=== PATIENT | female | born 1935 | race Caucasian/White ===

== ENCOUNTER 2019-04-26 09:34 | Inpatient (IN) | payer MEDICARE, BC ==
[2019-04-26] MEDS ORDERED: ONDANSETRON HCL INJ/PF 4 MG/2 ML SDV IV ONE (10:27)
[2019-04-26] MEDS ORDERED: NORMAL SALINE 1000 ML 1,000 ML IV ONE (10:27)
--- NOTE | 2019-04-26 10:28 | ER Document Report ---
ED Medical Screen (RME) - General Chief Complaint: Nausea/Vomiting/Diarrhea Stated Complaint: ABDOMINAL PAIN/VOMITING Time Seen by Provider: 04/26/19 10:25 Mode of Arrival: Wheelchair Information source: Patient Notes: 84-year-old female patient presents emergency department with nausea and vomiting. Patient reports multiple episodes of this in the past. States she has been seen by GI and has been seen at other hospitals. She states that they have worked her up multiple times cannot find a reason for the vomiting. She states that occasionally she ends up in the ER requesting IV fluids and IV Zofran which resolves her symptoms. Denies fevers or diarrhea. Denies any abdominal pain. Exam: Patient dry heaving in triage. I have greeted and performed a rapid initial assessment of this patient. A comprehensive ED assessment and evaluation of the patient, analysis of test results and completion of the medical decision making process will be conducted by additional ED providers. I have specifically instructed the patient or family members with the patient to immediately return to any nursing staff should anything change in the patient's condition or with their chief complaint. TRAVEL OUTSIDE OF THE [place] IN LAST 30 DAYS: No - Related Data Allergies/Adverse Reactions: Ativan Allergy (Uncoded 04/26/19 10:13) Past Medical History - Social History Chew tobacco use (# tins/day): No Frequency of alcohol use: Rare Drug Abuse: None Physical Exam - Vital signs Vitals: Temp Pulse Resp BP Pulse Ox 97.6 F 89 16 188/78 H 100 04/26/19 10:00 04/26/19 10:00 04/26/19 10:00 04/26/19 10:00 04/26/19 10:00 Course - Vital Signs Vital signs: Temp Pulse Resp BP Pulse Ox 97.6 F 89 16 188/78 H 100 04/26/19 10:00 04/26/19 10:00 04/26/19 10:00 04/26/19 10:00 04/26/19 10:00
[2019-04-26 11:09] LABS: ABSOLUTE LYMPHOCYTES (AUTO) 0.6 10^3/uL (0.5-4.7); ABSOLUTE MONOCYTES (AUTO) 0.3 10^3/uL (0.1-1.4); ABSOLUTE NEUT (AUTO) 7.8 10^3/uL (1.7-8.2); BASOPHILS % (AUTO) 0.4 % (0-2); EOSINOPHILS % (AUTO) 0.2 % (0-6); HEMATOCRIT 41.8 % (36.0-47.0); HEMOGLOBIN 14.2 g/dL (12.0-15.5); LYMPHOCYTES % (AUTO) 7.2 % (13-45); MEAN CORPUSCULAR HEMOGLOBIN 29.3 pg (27.0-33.4); MEAN CORPUSCULAR HGB CONC 34.1 g/dL (32.0-36.0); MEAN CORPUSCULAR VOLUME 86 fl (80-97); MONOCYTES % (AUTO) 3.5 % (3-13); PLATELET COUNT 247 10^3/uL (150-450); RED BLOOD COUNT 4.87 10^6/uL (3.72-5.28); RED CELL DISTRIBUTION WIDTH 13.9 % (11.5-14.0); SEGMENTED NEUTROPHILS % (AUTO) 88.7 % (42-78); TOTAL CELLS COUNTED % (AUTO) 100 %; WHITE BLOOD COUNT 8.8 10^3/uL (4.0-10.5)
[2019-04-26 11:32] LABS: ALBUMIN 4.5 g/dL (3.5-5.0); ALKALINE PHOSPHATASE 98 U/L (38-126); ANION GAP 14 (5-19); ASPARTATE AMINO TRANSFERASE 32 U/L (14-36); BILIRUBIN,DIRECT 0.1 mg/dL (0.0-0.4); BILIRUBIN,TOTAL 0.6 mg/dL (0.2-1.3); BLOOD UREA NITROGEN 14 mg/dL (7-20); CARBON DIOXIDE 25 mmol/L (22-30); CHLORIDE 100 mmol/L (98-107); GLUCOSE 162 mg/dL (75-110); TOTAL PROTEIN 7.6 g/dL (6.3-8.2)
[2019-04-26] MEDS ORDERED: HYDROMORPHONE HCL INJ/PF 2 MG/ML AMPULE IV PRN ×3 (12:45→15:54)
--- NOTE | 2019-04-26 12:58 | ER Document Report ---
ED GI/ - General Chief Complaint: Nausea/Vomiting/Diarrhea Stated Complaint: ABDOMINAL PAIN/VOMITING Time Seen by Provider: 04/26/19 10:25 Mode of Arrival: Wheelchair Information source: Patient Notes: Patient complains of nausea and vomiting. This has been chronic for at least the last 5 to 10 years after receiving radiation therapy in the treatment of cancer. No past surgical history abdominal. Patient denies any chest pain or shortness of breath. No rashes. No urinary complaints. According to patient and daughter who is at the bedside normally IV fluid and Zofran will help with the symptoms. Patient is cachectic because of this chronic issue. She states the only food that she can eat is baked chicken. No other complaints. The abdominal pain is worse on the left side and is sharp. TRAVEL OUTSIDE OF THE [place] IN LAST 30 DAYS: No - Related Data Allergies/Adverse Reactions: Ativan Allergy (Uncoded 04/26/19 10:13) Past Medical History - General Information source: Patient - Social History Smoking Status: Never Smoker Chew tobacco use (# tins/day): No Frequency of alcohol use: Rare Drug Abuse: None Family History: None Patient has suicidal ideation: No Patient has homicidal ideation: No Review of Systems - Review of Systems Constitutional: denies: Chills, Fever Gastrointestinal: Abdominal pain, Vomiting -: Yes All other systems reviewed and negative Physical Exam - Vital signs Vitals: Temp Pulse Resp BP Pulse Ox 97.6 F 89 16 188/78 H 100 04/26/19 10:00 04/26/19 10:00 04/26/19 10:00 04/26/19 10:00 04/26/19 10:00 Interpretation: Hypertensive - General General appearance: Alert, Other - UNCOMFORTABLE - HEENT Head: Normocephalic, Atraumatic Eyes: Normal Pupils: PERRL Mucous membranes: Dry - Respiratory Respiratory status: No respiratory distress Chest status: Nontender Breath sounds: Normal Chest palpation: Normal - Cardiovascular Rhythm: Regular Heart sounds: Normal auscultation Murmur: No - Abdominal Inspection: Normal Distension: No distension Bowel sounds: Normal Tenderness: Tender. No: Rebound Organomegaly: No organomegaly - Back Back: Normal, Nontender - Extremities General upper extremity: Normal inspection, Nontender, Normal color, Normal ROM, Normal temperature General lower extremity: Normal inspection, Nontender, Normal color, Normal ROM, Normal temperature, Normal weight bearing. No: Kishan's sign - Neurological Neuro grossly intact: Yes Cognition: Normal Orientation: AAOx4 Harriman Coma Scale Eye Opening: Spontaneous Sanjeev Coma Scale Verbal: Oriented Sanjeev Coma Scale Motor: Obeys Commands Harriman Coma Scale Total: 15 Speech: Normal Motor strength normal: LUE, RUE, LLE, RLE Sensory: Normal - Psychological Associated symptoms: Normal affect, Normal mood - Skin Skin Temperature: Warm Skin Moisture: Dry Skin Color: Normal Course - Re-evaluation Re-evalutation: 04/26/19 13:01 Labs reviewed. 04/26/19 13:51 CT abdomen pelvis per radiologist shows early partial SBO. Patient continues to have abdominal pain and nausea. Will admit. 04/26/19 14:00 04/26/19 14:06 Discussed case in detail with Dr. Forte, who agrees with admission. Patient is currently stable. - Vital Signs Vital signs: Temp Pulse Resp BP Pulse Ox 97.6 F 89 16 188/78 H 100 04/26/19 10:00 04/26/19 10:00 04/26/19 10:00 04/26/19 10:00 04/26/19 10:00 - Laboratory Result Diagrams: 04/26/19 10:50 04/26/19 10:50 Laboratory results interpreted by me: 04/26/19 04/26/19 04/26/19 10:50 10:50 12:50 Lymph % (Auto) 7.2 L Seg Neutrophils % 88.7 H Glucose 162 H Urine Glucose (UA) 50 H Urine Ketones 20 H Discharge - Discharge Clinical Impression: SBO (small bowel obstruction) Abdominal pain Qualifiers: Abdominal location: unspecified location Qualified Code(s): R10.9 - Unspecified abdominal pain Vomiting Qualifiers: Vomiting type: unspecified Vomiting Intractability: unspecified Nausea presence: with nausea Qualified Code(s): R11.2 - Nausea with vomiting, unspecified Condition: Stable Disposition: ADMITTED INPATIENT Admitting Provider: Soni (Hospitalist) Unit Admitted: Medical Floor
[2019-04-26 13:07] LABS: APPEARANCE,URINE CLEAR; BILIRUBIN,URINE NEGATIVE (NEGATIVE); COLOR,URINE STRAW; GLUCOSE, URINE 50 mg/dL (NEGATIVE); KETONES,URINE 20 mg/dL (NEGATIVE); LEUKOCYTE ESTERASE,URINE NEGATIVE (NEGATIVE); NITRITE,URINE NEGATIVE (NEGATIVE); PROTEIN,URINE NEGATIVE (NEGATIVE); URINE SPECIFIC GRAVITY 1.011; UROBILINOGEN,URINE NEGATIVE mg/dL (<2.0)
--- NOTE | 2019-04-26 13:28 | RADIOLOGY REPORT (SQ) ---
EXAM DESCRIPTION: CT ABD/PELVIS NO ORAL OR IV COMPLETED DATE/TIME: 04/26/2019 1:00 pm REASON FOR STUDY: ABD PAIN COMPARISON: None. TECHNIQUE: CT scan of the abdomen and pelvis performed without intravenous or oral contrast. Images reviewed with lung, soft tissue, and bone windows. Reconstructed coronal and sagittal MPR images revi ewed. All images stored on PACS. All CT scanners at this facility use dose modulation, iterative reconstruction, and/or weight based d osing when appropriate to reduce radiation dose to as low as reasonably achievable (ALARA). [facility]: Dose Right [facility]: CareDose [facility]: Dose Right [facility]: Teradose 4D [facility]: Smart [employer] RADIATION DOSE: CT Rad equipment meets quality standard of care and radiation dose reduction techniq ues were employed. CTDIvol: 4.8 mGy. DLP: 232 mGy-cm.mGy. LIMITATIONS: None. FINDINGS: LOWER CHEST: Small hiatal hernia. NON-CONTRASTED LIVER, SPLEEN, ADRENALS: Evaluation limited by lack of IV contrast. No identified sign ificant masses. PANCREAS: No masses. No peripancreatic inflammatory changes. GALLBLADDER: Surgically absent. RIGHT KIDNEY AND URETER: Incompletely characterized 3 cm superior pole fluid attenuating lesion, most likely representing a cyst. Assessment limited by lack of IV contrast. No significant calcificatio ns. No hydronephrosis or hydroureter. LEFT KIDNEY AND URETER: No suspicious masses. Assessment limited by lack of IV contrast. No signifi cant calcifications. No hydronephrosis or hydroureter. AORTA AND RETROPERITONEUM: No aneurysm. No retroperitoneal masses or adenopathy. BOWEL AND PERITONEAL CAVITY: Multiple mildly prominent fluid-filled loops of small bowel for he would throughout the abdomen measuring up to 2.8 cm in maximal caliber and containing few scattered air-fl uid levels. No discrete transition point although decompressed small bowel located within the lower abdomen. No bowel wall thickening. Gas and stool within the proximal large bowel. No free fluid. APPENDIX: Not visualized. PELVIS, BLADDER, AND ABDOMINAL WALL:Postsurgical changes of hysterectomy. No abnormal masses. No matt e fluid. Bladder normal. BONES: Old L1 and L2 compression fractures. OTHER: No other significant finding. IMPRESSION: Multiple mildly prominent fluid-filled loops of small bowel throughout the abdomen measu ring up to 2.8 cm with scattered air-fluid levels concerning for partial small bowel obstruction as t here is gas within the proximal large bowel. No discrete transition point, although decompressed sma ll bowel is present within the lower abdomen. COMMENT: Quality ID # [id number]: Final reports with documentation of one or more dose reduction techniques (e.g., Automated exposure control, adjustment of the mA and/or kV according to patient size, use of iterative reconstruction technique) TECHNICAL DOCUMENTATION: JOB ID: [id number] [employer]- All Rights Reserved Reading location - IP/workstation name: [email or web address]
[2019-04-26] MEDS ORDERED: NORMAL SALINE 1000 ML 1,000 ML IV PRN (15:48)
[2019-04-26] MEDS ORDERED: ACETAMINOPHEN 325 MG TABLET PO PRN (15:48)
[2019-04-26] MEDS ORDERED: GLUCAGON,HUMAN RECOMB 1 MG INJ SUBCUT PRN (15:48)
[2019-04-26] MEDS ORDERED: ONDANSETRON HCL INJ/PF 4 MG/2 ML SDV IV PRN (15:48)
[2019-04-26] MEDS ORDERED: DEXTROSE 40% GEL 15 GM TUBE PO PRN ×2 (15:48)
[2019-04-26] MEDS ORDERED: DEXTROSE 50%-WATER 25 GM/50 ML DISP.SYRIN IV PRN ×2 (15:48)
--- NOTE | 2019-04-26 15:58 | PDOC H&P ---
History of Present Illness Admission Date/PCP: 04/26/19 14:25 Patient complains of: Abdominal pain with vomiting History of Present Illness: TORIE FUNK is a 84 year old female with history of endometrial cancer status post hysterectomy and external beam radiation therapy. Since the radiation therapy she has developed recurrent episodes of obstruction. This is most likely due to fibrotic tissue secondary to the radiation. This can cause adhesions with recurrent obstructive symptoms. She had an episode the day before Thanksgiving as well as the day after. During that week she had a total of 4 episodes. She has not experienced any further episodes until today. An episode typically consists of abdominal pain as well as nausea and vomiting. She does not always go to the hospital. Sometimes after several bouts of emesis the nausea will go away and the patient waits for the pain to resolve. Today she began having pain this morning. The pain was significant and she did not get relief from the vomiting. She then proceeded to the emergency department. Evaluation in the emergency department revealed scattered areas of air-fluid levels with no obvious transition area. The patient was referred to the hospitalist service for admission. Past Medical History Cardiac Medical History: Denies: Atrial Fibrillation, Congestive Heart Failure, Coronary Artery Disease Pulmonary Medical History: Denies: Asthma, Chronic Obstructive Pulmonary Disease (COPD), Respiratory Failure EENT Medical History: Reports: Ears - Hearing loss. She wears hearing aids. 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 Denies: Cirrhosis, Crohn's Disease, Diverticulitis Musculoskeltal Medical History: Denies: Arthritis, Fibromyalgia, Gout Skin Medical History: Denies: Eczema, Psoriasis Psychiatric Medical History: Denies: Alcohol Dependency, Depression, Substance Abuse, Tobacco Dependency Traumatic Medical History: Reports: None Hematology: Reports: Anemia - Likely chronic anemia Denies: Heparin Induced Thrombocytopenia Past Surgical History Past Surgical History: Reports: Cholecystectomy, Hysterectomy, Tonsillectomy Social History Smoking Status: Never Smoker Electronic Cigarette use?: No - Advance Directive Resuscitation Status: Do Not Resuscitate Surrogate healthcare decision maker:: She does have an advanced directive on file at [facility] Family History Family History: CAD, Malignancy Parental Family History Reviewed: Yes Children Family History Reviewed: Yes Sibling(s) Family History Reviewed.: NA Medication/Allergy Home Medications: Polyethylene Glycol 3350 [Miralax Powder 17 gm/Packet] 1 packet PO QHS 04/26/19 Allergies/Adverse Reactions: Ativan Allergy (Uncoded 04/26/19 10:13) Review of Systems All systems: reviewed and no additional remarkable complaints except as stated Constitutional: PRESENT: weight loss Ears: PRESENT: hearing changes Gastrointestinal: PRESENT: abdominal pain, nausea, vomiting Physical Exam Vital Signs: Temp Pulse Resp BP Pulse Ox 97.6 F 89 18 122/68 99 04/26/19 10:00 04/26/19 10:00 04/26/19 15:02 04/26/19 15:02 04/26/19 15:02 Intake & Output 04/25/19 04/26/19 04/27/19 06:59 06:59 06:59 Intake Total 1000 Balance 1000 Weight 43.998 kg General appearance: PRESENT: cooperative, mild distress, thin, well-developed Head exam: PRESENT: atraumatic, normocephalic Eye exam: PRESENT: conjunctiva pale, EOMI. ABSENT: scleral icterus Mouth exam: PRESENT: dry mucosa, neck supple, tongue midline Throat exam: ABSENT: post pharyngeal erythema Neck exam: PRESENT: full ROM. ABSENT: carotid bruit, JVD, lymphadenopathy Respiratory exam: PRESENT: clear to auscultation valery, symmetrical, unlabored. ABSENT: accessory muscle use, rales, rhonchi, stridor, tachypnea Cardiovascular exam: PRESENT: RRR, +S1, +S2, other - Occasional irregular beat Pulses: PRESENT: normal radial pulses, normal dorsalis pedis pul GI/Abdominal exam: PRESENT: diminished bowel sounds, soft, tenderness. ABSENT: distended Rectal exam: PRESENT: deferred Extremities exam: PRESENT: full ROM. ABSENT: joint swelling, pedal edema Musculoskeletal exam: PRESENT: ambulatory, normal inspection, other - Decreased muscle mass. ABSENT: deformity Neurological exam: PRESENT: alert, awake, oriented to person, oriented to place, oriented to time, oriented to situation, CN II-XII grossly intact - Wears hearing aids otherwise intact Psychiatric exam: PRESENT: appropriate affect. ABSENT: agitated, anxious Focused psych exam: ABSENT: delusional, restlessness Skin exam: PRESENT: dry, pallor, warm. ABSENT: rash Results Laboratory Results: 04/26/19 10:50 04/26/19 10:50 04/26/19 04/26/19 04/26/19 10:50 10:50 12:50 WBC 8.8 RBC 4.87 Hgb 14.2 Hct 41.8 MCV 86 MCH 29.3 MCHC 34.1 RDW 13.9 Plt Count 247 Seg Neutrophils % 88.7 H Sodium 139.0 Potassium 4.0 Chloride 100 Carbon Dioxide 25 Anion Gap 14 BUN 14 Creatinine 0.58 Est GFR ( Amer) > 60 Glucose 162 H Calcium 10.0 Total Bilirubin 0.6 AST 32 Alkaline Phosphatase 98 Total Protein 7.6 Albumin 4.5 Lipase 67.1 Urine Color STRAW Urine Appearance CLEAR Urine pH 8.0 Ur Specific [place] 1.011 Urine Protein NEGATIVE Urine Glucose (UA) 50 H Urine Ketones 20 H Urine Blood NEGATIVE Urine Nitrite NEGATIVE Ur Leukocyte Esterase NEGATIVE Urine WBC (Auto) 0 Urine RBC (Auto) 1 Impressions: Abdomen/Pelvis CT 04/26/19 12:45 IMPRESSION: Multiple mildly prominent fluid-filled loops of small bowel throughout the abdomen measuring up to 2.8 cm with scattered air-fluid levels concerning for partial small bowel obstruction as there is gas within the proximal large bowel. No discrete transition point, although decompressed small bowel is present within the lower abdomen. Assessment and Plan - Diagnosis (1) SBO (small bowel obstruction) Is this a current diagnosis for this admission?: Yes Plan: 04/26/2019-see also CT scan report. Patient has a history of recurrent episodes similar to this 1. There are likely multiple adhesions from her radiation therapy. She is supposed to follow dietary restrictions but does not always comply. These episodes resolve on their own with conservative therapy. Surgical intervention in this particular situation could be disastrous. We will allow her sips of room temperature water as well as oral medications if needed. At this point her pain already seems improved. Her nausea has subsided. With resolution we will start clear liquid diet and advance as tolerated. (2) Abdominal pain Qualifiers: Abdominal location: generalized Qualified Code(s): R10.84 - Generalized abdominal pain Is this a current diagnosis for this admission?: Yes Plan: 04/26/2019-IV analgesia will be available. Conservative therapy with nothing by mouth except sips of water and medications. (3) Vomiting Qualifiers: Vomiting type: unspecified Vomiting Intractability: unspecified Nausea presence: with nausea Qualified Code(s): R11.2 - Nausea with vomiting, unspecified Is this a current diagnosis for this admission?: Yes Plan: 04/26/2019-antiemetics will be available. Bowel rest with only sips of room temperature water. She will also receive IV fluids for hydration. (4) Protein-calorie malnutrition, moderate Is this a current diagnosis for this admission?: Yes Plan: 04/26/2019-the patient exhibits decreased muscle mass. Over the last 2 to 3 years she has lost almost 40 pounds. Her body mass index is below 20. The patient most likely does not take in enough protein. She is lactose intolerant and therefore does not do well with standard protein drinks. We reviewed lactose-free supplements including protein powders. I will also have the dietitian see the patient and establish target goals of having a kilograms of protein the patient should have per day. (5) Lactose intolerance Is this a current diagnosis for this admission?: Yes Plan: 04/26/2019-etiology is unknown. It could be related to her enteritis. We discussed the need for protein supplements. I did report to the family that there are lactose-free protein supplements available. I explained to the patient that she should at least be taking 1.5 g of protein per kilogram in order to regain some weight. She must be careful not to overdo the protein and she should spread out during the day. I will have the dietitian see the patient. - Plan Summary Summary: 04/26/2019-antiemetics and analgesics. Only sips of room temperature water and medications by mouth. The patient states that these episodes usually pass within a day or so. She will need IV fluids to replace the vomiting and for maintenance hydration. - Time Time Spent with patient: 35 or more minutes Medications reviewed and adjusted accordingly: Yes Anticipated discharge: Home - Inpatient Certification Based on my medical assessment, after consideration of the patient's comorbidities, presenting symptoms, or acuity I expect that the services needed warrant INPATIENT care.: Yes I certify that my determination is in accordance with my understanding of Medicare's requirements for reasonable and necessary INPATIENT services [42 CFR 412.3e].: Yes Medical Necessity: Need For IV Fluids, Need for Pain Control Post Hospital Care: D/C Order Checker Packer Processer Documentation
--- NOTE | 2019-04-26 16:15 | ADVANCED CARE ---
- Diagnosis (1) SBO (small bowel obstruction) Diagnosis Current: Yes (2) Abdominal pain Diagnosis Current: Yes (3) Vomiting Diagnosis Current: Yes (4) Protein-calorie malnutrition, moderate Diagnosis Current: Yes (5) Lactose intolerance Diagnosis Current: Yes Attendance: patient and step daughter. Resuscitation Status: Do Not Resuscitate Discussion: We did review the patient's current DNR status. She does have an advanced directive on file in the [facility] system. We reviewed her reasoning behind this decision. We also made sure to review with the patient's daughter. Care Planning Goals: The patient already has an advanced directive in place. Our goal will be to prevent further episodes of obstruction and try to avoid surgery as this could be catastrophic. Document(s) Completed: Patient already has an advanced directive completed Time Spent: 18 minutes
[2019-04-27 05:47] LABS: ANION GAP 9 (5-19); BLOOD UREA NITROGEN 11 mg/dL (7-20); CALCIUM 8.6 mg/dL (8.4-10.2); CARBON DIOXIDE 25 mmol/L (22-30); CHLORIDE 106 mmol/L (98-107); GLUCOSE 81 mg/dL (75-110); POTASSIUM 3.6 mmol/L (3.6-5.0)
[2019-04-27] MEDS ORDERED: ENOXAPARIN SODIUM INJ 30 MG/0.3 ML DISP.SYRIN SUBCUT SCH (10:00)
--- NOTE | 2019-04-27 10:37 | PDOC DISCHARGE SUMMARY ---
Impression - Admit/DC Date/PCP Admission Date/Primary Care Provider: 04/26/19 14:25 Discharge Date: 04/27/19 - Discharge Diagnosis (1) SBO (small bowel obstruction) Is this a current diagnosis for this admission?: Yes (2) Abdominal pain Is this a current diagnosis for this admission?: Yes (3) Vomiting Is this a current diagnosis for this admission?: Yes (4) Protein-calorie malnutrition, moderate Is this a current diagnosis for this admission?: Yes (5) Lactose intolerance Is this a current diagnosis for this admission?: Yes - Assessment Summary: 04/26/2019-antiemetics and analgesics. Only sips of room temperature water and medications by mouth. The patient states that these episodes usually pass within a day or so. She will need IV fluids to replace the vomiting and for maintenance hydration. - Additional Information Resuscitation Status: Do Not Resuscitate Discharge Diet: As Tolerated Discharge Activity: Activity As Tolerated Referrals: OOT,PCP [Other] Home Medications: Polyethylene Glycol 3350 [Miralax Powder 17 gm/Packet] 1 packet PO QHS 04/26/19 Acetaminophen [Tylenol 325 mg Tablet] 650 mg PO Q4HP PRN tablet 04/27/19 History of Present Illiness History of Present Illness: TORIE FUNK is a 84 year old female with history of endometrial cancer status post hysterectomy and external beam radiation therapy. Since the radiation therapy she has developed recurrent episodes of obstruction. This is most likely due to fibrotic tissue secondary to the radiation. This can cause adhesions with recurrent obstructive symptoms. She had an episode the day before [place] as well as the day after. During that week she had a total of 4 episodes. She has not experienced any further episodes until today. An episode typically consists of abdominal pain as well as nausea and vomiting. She does not always go to the hospital. Sometimes after several bouts of emesis the nausea will go away and the patient waits for the pain to resolve. Today she began having pain this morning. The pain was significant and she did not get relief from the vomiting. She then proceeded to the emergency department. Evaluation in the emergency department revealed scattered areas of air-fluid levels with no obvious transition area. The patient was referred to the hospitalist service for admission. Hospital Course Hospital Course: Patient had an unremarkable hospital course and in fact improved much faster than anticipated. She tolerated the IV fluids. She feels less dehydrated. We discussed a treatment plan for her protein calorie malnutrition and diet modifications for her recurrent obstructions most likely due to adhesions. She is stable and wishes to discharge home today. If she tolerates clear liquids then she will discharge to home. Physical Exam Vital Signs: Temp Pulse Resp BP Pulse Ox 98.0 F 86 12 136/59 H 100 04/27/19 07:35 04/27/19 07:35 04/27/19 07:35 04/27/19 07:35 04/27/19 07:35 Intake & Output 04/26/19 04/27/19 04/28/19 06:59 06:59 06:59 Intake Total 1120 Output Total 0 Balance 1120 Weight 47.2 kg General appearance: PRESENT: no acute distress, cooperative, thin Ear exam: PRESENT: TM's normal bilaterally. ABSENT: bleeding, drainage Mouth exam: PRESENT: dry mucosa, tongue midline Respiratory exam: PRESENT: clear to auscultation valery, symmetrical, unlabored. ABSENT: prolonged expiratory phas, rales, rhonchi, tachypnea, wheezes Cardiovascular exam: PRESENT: RRR, +S1, +S2 GI/Abdominal exam: PRESENT: normal bowel sounds, soft. ABSENT: distended, ten derness Rectal exam: PRESENT: deferred Extremities exam: PRESENT: full ROM. ABSENT: pedal edema Musculoskeletal exam: PRESENT: ambulatory, other - Decreased muscle mass Neurological exam: PRESENT: alert, awake, oriented to person, oriented to place, oriented to time, oriented to situation, CN II-XII grossly intact Psychiatric exam: PRESENT: appropriate affect, normal mood. ABSENT: agitated, anxious Focused psych exam: ABSENT: delusional, restlessness Skin exam: PRESENT: dry, pallor, warm. ABSENT: rash Results Laboratory Results: WBC 8.8 10^3/uL (4.0-10.5) 04/26/19 10:50 RBC 4.87 10^6/uL (3.72-5.28) 04/26/19 10:50 Hgb 14.2 g/dL (12.0-15.5) 04/26/19 10:50 Hct 41.8 % (36.0-47.0) 04/26/19 10:50 MCV 86 fl (80-97) 04/26/19 10:50 MCH 29.3 pg (27.0-33.4) 04/26/19 10:50 MCHC 34.1 g/dL (32.0-36.0) 04/26/19 10:50 RDW 13.9 % (11.5-14.0) 04/26/19 10:50 Plt Count 247 10^3/uL (150-450) 04/26/19 10:50 Lymph % (Auto) 7.2 % (13-45) L 04/26/19 10:50 [place] % (Auto) 3.5 % (3-13) 04/26/19 10:50 Eos % (Auto) 0.2 % (0-6) 04/26/19 10:50 Baso % (Auto) 0.4 % (0-2) 04/26/19 10:50 Absolute Neuts (auto) 7.8 10^3/uL (1.7-8.2) 04/26/19 10:50 Absolute Lymphs (auto) 0.6 10^3/uL (0.5-4.7) 04/26/19 10:50 Absolute Monos (auto) 0.3 10^3/uL (0.1-1.4) 04/26/19 10:50 Absolute Eos (auto) 0.0 10^3/uL (0.0-0.6) 04/26/19 10:50 Absolute Basos (auto) 0.0 10^3/uL (0.0-0.2) 04/26/19 10:50 Seg Neutrophils % 88.7 % (42-78) H 04/26/19 10:50 Sodium 139.6 mmol/L (137-145) 04/27/19 04:16 Potassium 3.6 mmol/L (3.6-5.0) 04/27/19 04:16 Chloride 106 mmol/L (98-107) 04/27/19 04:16 Carbon Dioxide 25 mmol/L (22-30) 04/27/19 04:16 Anion Gap 9 (5-19) 04/27/19 04:16 BUN 11 mg/dL (7-20) 04/27/19 04:16 Creatinine 0.57 mg/dL (0.52-1.25) 04/27/19 04:16 Est GFR ( Amer) > 60 (>60) 04/27/19 04:16 Est GFR (MDRD) Non-Af > 60 (>60) 04/27/19 04:16 Glucose 81 mg/dL (75-110) 04/27/19 04:16 Calcium 8.6 mg/dL (8.4-10.2) 04/27/19 04:16 Magnesium 2.1 mg/dL (1.6-2.3) 04/27/19 04:16 Total Bilirubin 0.6 mg/dL (0.2-1.3) 04/26/19 10:50 Direct Bilirubin 0.1 mg/dL (0.0-0.4) 04/26/19 10:50 Neonat Total Bilirubin Not Reportable 04/26/19 10:50 Neonat Direct Bilirubin Not Reportable 04/26/19 10:50 Neonat Indirect Bili Not Reportable 04/26/19 10:50 AST 32 U/L (14-36) 04/26/19 10:50 ALT 13 U/L (<35) 04/26/19 10:50 Alkaline Phosphatase 98 U/L (38-126) 04/26/19 10:50 Total Protein 7.6 g/dL (6.3-8.2) 04/26/19 10:50 Albumin 4.5 g/dL (3.5-5.0) 04/26/19 10:50 Lipase 67.1 U/L (23-300) 04/26/19 10:50 Urine Color STRAW 04/26/19 12:50 Urine Appearance CLEAR 04/26/19 12:50 Urine pH 8.0 (5.0-9.0) 04/26/19 12:50 Ur Specific [place] 1.011 04/26/19 12:50 Urine Protein NEGATIVE mg/dL (NEGATIVE) 04/26/19 12:50 Urine Glucose (UA) 50 mg/dL (NEGATIVE) H 04/26/19 12:50 Urine Ketones 20 mg/dL (NEGATIVE) H 04/26/19 12:50 Urine Blood NEGATIVE (NEGATIVE) 04/26/19 12:50 Urine Nitrite NEGATIVE (NEGATIVE) 04/26/19 12:50 Urine Bilirubin NEGATIVE (NEGATIVE) 04/26/19 12:50 Urine Urobilinogen NEGATIVE mg/dL (<2.0) 04/26/19 12:50 Ur Leukocyte Esterase NEGATIVE (NEGATIVE) 04/26/19 12:50 Urine WBC (Auto) 0 /HPF 04/26/19 12:50 Urine RBC (Auto) 1 /HPF 04/26/19 12:50 Urine Ascorbic Acid NEGATIVE (NEGATIVE) 04/26/19 12:50 Impressions: Abdomen/Pelvis CT 04/26/19 12:45 IMPRESSION: Multiple mildly prominent fluid-filled loops of small bowel throughout the abdomen measuring up to 2.8 cm with scattered air-fluid levels concerning for partial small bowel obstruction as there is gas within the proximal large bowel. No discrete transition point, although decompressed small bowel is present within the lower abdomen. Plan Health Concerns: Recurrent bowel obstruction and protein calorie malnutrition Plan of Treatment: Increase protein intake Modified diet and advance as tolerated Goals: Weight gain to increase BMI to approximately 22-23. Modify diet to try and avoid recurrent obstruction. Time Spent: Greater than 30 Minutes Stroke Is this a Stroke Patient?: No Acute Heart Failure - Is this a Heart Failure Patient?: No
[2019-04-27 14:07] VITALS: BP 128/60
== END 2019-04-27 14:20 | disposition home or self-care (01) | DRG 389 ==
LOC: ER 09:34 → EH 14:25 → 4N 16:52
PROVIDERS: ADMIT Hospitalist; ATTEND Hospitalist
DX: K56.609 Unspecified intestinal obstruction, unspecified as to partial versus complete obstruction (principal); E44.0 Moderate protein-calorie malnutrition; Z68.1 Body mass index [BMI] 19.9 or less, adult; E73.9 Lactose intolerance, unspecified; Z66 Do not resuscitate; E86.0 Dehydration; H91.90 Unspecified hearing loss, unspecified ear; D64.9 Anemia, unspecified; Z85.89 Personal history of malignant neoplasm of other organs and systems; Z92.3 Personal history of irradiation; Z80.9 Family history of malignant neoplasm, unspecified; Z88.8 Allergy status to other drugs, medicaments and biological substances
CPT/HCPCS: 36415; 74176; 80048; 80053; 81001; 83690; 83735; 85025; 96361; 96374; 96375; 99285; J1170; J2405; J7030